=== PATIENT | female | born 1975 | race Two or more races ===

== ENCOUNTER 2017-01-12 18:25 | Emergency (ER) | payer OTHER ==
[2017-01-12 18:31] VITALS: BP 124/86; PULSE 72; TEMP 98.3; BMI 25.7
[2017-01-12] MEDS ORDERED: KETOROLAC TROMETHAMINE 60 MG/2 ML VIAL IM ONE (19:09)
[2017-01-12] MEDS ORDERED: KETOROLAC TROMETHAMINE 60 MG/2 ML VIAL ONE (19:11)
--- NOTE | 2017-01-12 19:17 | PDOC ---
History of Present Illness - General Chief Complaint: Back Pain Stated Complaint: BACK PAIN Time Seen by Provider: 01/12/17 19:04 History Source: Patient Exam Limitations: No Limitations - History of Present Illness Initial Comments: 01/12/17 19:11 41 yr female no medical history with low back pain radiating to her left buttock after doing housework today stood up from bending down and felt pain . denies bowel or bladder dysfunction. Occurred: reports: this afternoon Severity: reports: moderate Pain Location: reports: back Loss of Consciousness: no loss of consciousness Past History - Past Medical History Allergies/Adverse Reactions: Allergies Allergy/AdvReac Type Severity Reaction Status Date / Time ciprofloxacin [From Cipro] Allergy Verified 01/12/17 18:31 ciprofloxacin HCl Allergy Verified 01/12/17 18:31 [From Cipro] coffee (Coffea arabica) Allergy Verified 01/12/17 18:31 shrimp Allergy Verified 01/12/17 18:31 cock Allergy Uncoded 01/12/17 18:31 Home Medications: Ambulatory Orders Diazepam [Valium] 5 mg PO Q8H PRN #9 tablet MDD 15mg 01/12/17 Ibuprofen [Motrin -] 800 mg PO TID 01/12/17 Ketorolac Tromethamine [Toradol] 10 mg PO Q6H PRN #20 tablet 01/12/17 Anemia: No Asthma: No Cancer: No Cardiac Disorders: No CVA: No COPD: No CHF: No Dementia: No Diabetes: No GI Disorders: Yes (gerd) Disorders: No (STONES) HTN: No Hypercholesterolemia: No Kidney Stones: Yes Seizures: No Thyroid Disease: No - Surgical History Abdominal Surgery: Yes Appendectomy: Yes Cholecystectomy: Yes - Reproductive History (#): 2 Para: 1 - Suicide/Smoking/Psychosocial Hx Smoking Status: No Smoking History: Never smoked Number of Cigarettes Smoked Daily: 0 Information on smoking cessation initiated: No Hx Alcohol Use: No Drug/Substance Use Hx: No Substance Use Type: None Trauma Specific PMHX - Complaint Specific PMHX Back Injury: No Review of Systems - Review of Systems Able to Perform ROS?: Yes Is the patient limited Kinyarwanda proficient: No Constitutional: No: Symptoms Reported HEENTM: No: Symptoms Reported Respiratory: No: Symptoms reported Cardiac (ROS): No: Symptoms Reported ABD/GI: No: Symptoms Reported : No: Symptoms Reported Musculoskeletal: Yes: See HPI, Back Pain Integumentary: No: Symptoms Reported *Physical Exam - Vital Signs Last Vital Signs Temp Pulse Resp BP Pulse Ox 98.3 F 72 18 124/86 100 01/12/17 18:28 01/12/17 18:28 01/12/17 18:28 01/12/17 18:28 01/12/17 18:28 - Physical Exam General Appearance: Yes: Nourished, Appropriately Dressed HEENT: positive: EOMI, ADRIENNE, Normal ENT Inspection, TMs Normal, Pharynx Normal Respiratory/Chest: positive: Lungs Clear, Normal Breath Sounds Cardiovascular: positive: Regular Rhythm, Regular Rate Gastrointestinal/Abdominal: positive: Normal Bowel Sounds, Soft Musculoskeletal: positive: Normal Inspection, Decreased Range of Motion, Muscle Spasm. negative: CVA Tenderness, CVA Tenderness (R), CVA Tenderness (L), Vertebral Tenderness Extremity: positive: Normal Capillary Refill, Normal Inspection, Normal Range of Motion, Other (positive SLR left side at 45 degrees ). negative: Tender Integumentary: positive: Normal Color, Dry, Warm Neurologic: positive: Fully Oriented, Alert, Normal Mood/Affect, Normal Response , Motor Strength 5/5 Medical Decision Making - Medical Decision Making 01/12/17 19:14 cc: low back pain with sciatica left side neg bowel or bladder dysfunction neg saddle anesthesia pt is able to get dressed and undressed independently ambulatory with limp will give toradol dc home with valium and toradol follow up with orthopedist *DC/Admit/Observation/Transfer Diagnosis at time of Disposition: Muscle spasm of back, Sciatica of left side - Discharge Dispostion Disposition: HOME Condition at time of disposition: Good - Prescriptions Prescriptions: Ketorolac Tromethamine [Toradol] 10 mg PO Q6H PRN #20 tablet PRN Reason: Back Pain Diazepam [Valium] 5 mg PO Q8H PRN #9 tablet MDD 15mg PRN Reason: Muscle Spasms - Referrals Referrals: Frederic Britt [Primary Care Provider] - Serg Roy MD [Staff Physician] - - Patient Instructions Additional Instructions: warm compresses to area of pain put a pillow under your knees when lying flat take the medication as prescribed DO NOT DRIVE, OPERATE MACHINERY OR DRINK ALCOHOL while taking Valium follow with the orthopedist for follow up next week return to ER for any worsening pain or other symptoms no heavy lifting or bending
== END 2017-01-12 19:36 | disposition home or self-care (01) ==
LOC: JERFT 18:25
PROC: 3E0233Z Introduction of Anti-inflammatory into Muscle, Percutaneous Approach (ICD-10-PCS; principal; 2017-01-12)
DX: M62.830 Muscle spasm of back (principal); M54.32 Sciatica, left side
CPT/HCPCS: 99281-25

== ENCOUNTER 2018-12-06 01:01 | Emergency (ER) | payer OTHER | END 2018-12-06 04:51 | disposition home or self-care (01) | LOC: JER 01:01 ==

== ENCOUNTER 2019-11-18 02:02 | Emergency (ER) | payer OTHER ==
[2019-11-18 02:49] VITALS: BMI 26.2
[2019-11-18] MEDS ORDERED: LACTATED RINGERS SOLUTION 1000 ML INFUS.BAG IV ONE (02:57)
[2019-11-18] MEDS ORDERED: KETOROLAC TROMETHAMINE 15 MG/ML VIAL IVPUSH ONE (02:57)
--- NOTE | 2019-11-18 03:27 | PDOC ---
History of Present Illness - General Chief Complaint: Pain, Acute Stated Complaint: PAIN History Source: Patient Exam Limitations: No Limitations - History of Present Illness Initial Comments: 44 y/o female presenting to [facility] ER complaining of two days of worsening left flank pain vs left suprapubic pain. Initially mild in the suprabubic area. This evening it became very severe in the left flank. Since onset, the pain has migrated in an anteroinferior path. Reports dysuria without hematuria or vaginal discharge. Denies fevers, N/V,D, chest pain, or SOB. States the pain is the same as her previous kidney stones. Has not followed closely with her urologist. LMP Nov 08, 2019 Sexual Hx: - Monogamous relationship with male - No h/o STIs Past History - Medical History Allergies/Adverse Reactions: Allergies Allergy/AdvReac Type Severity Reaction Status Date / Time ciprofloxacin [From Cipro] Allergy Verified 11/18/19 02:49 ciprofloxacin HCl Allergy Verified 11/18/19 02:49 [From Cipro] coffee (Coffea arabica) Allergy Verified 11/18/19 02:49 shrimp Allergy Verified 11/18/19 02:49 COCKAROACH Allergy Uncoded 11/18/19 02:49 Home Medications: Ambulatory Orders Diazepam [Valium] 5 mg PO Q8H PRN #9 tablet MDD 15mg 01/12/17 Ibuprofen [Motrin -] 800 mg PO TID 01/12/17 Ketorolac Tromethamine [Toradol] 10 mg PO Q6H PRN #20 tablet 01/12/17 Ondansetron [Zofran *Odt*] 4 mg SL BID #14 od.tablet 12/06/18 Tamsulosin HCl [Flomax] 0.4 mg PO DAILY #5 capsule MDD 1 tab 12/06/18 Anemia: No Asthma: No Cancer: No Cardiac Disorders: No CVA: No COPD: No CHF: No Dementia: No Diabetes: No GI Disorders: Yes (GERD) Disorders: No HTN: No Hypercholesterolemia: No Kidney Stones: Yes (Recurrent Nephrolithiasis) Seizures: No Thyroid Disease: No - Surgical History Abdominal Surgery: Yes Appendectomy: Yes Cholecystectomy: Yes - Reproductive History Is Patient Now?: No (#): 2 Para: 1 - Psycho-Social/Smoking History Smoking Status: No Smoking History: Never smoked Number of Cigarettes Smoked Daily: 0 - Substance Abuse Hx (Audit-C & DAST Scrn) How often the patient has a drink containing alcohol: Never Score: In Men: 4 or > Positive; In Women: 3 or > Positive: 0 Screen Result (Pos requires Nsg. Audit-10AR): Negative In the last yr the pt used illegal drug/Rx for NonMed reason: No Score: Yes response is considered Positive: 0 Screen Result (Positive result requires Nsg. DAST-10): Negative Review of Systems - Review of Systems Able to Perform ROS?: Yes Comments:: 10 point review of systems completed. All systems negative except as noted above. *Physical Exam - Vital Signs Last Vital Signs Temp Pulse Resp BP Pulse Ox 98 F 65 17 99/58 L 100 11/18/19 02:47 11/18/19 02:47 11/18/19 02:47 11/18/19 02:47 11/18/19 02:47 - Physical Exam Vital signs and nursing notes reviewed. Constitutional- Well-developed, well-nourished adult female in no acute distress but obvious discomfort. Observed walking through the department unassisted but crying. Examined in semi-fowlers position on hospital stretcher. Answered all questions appropriately and completely. Head- Normocephalic. No obvious external signs of trauma. Eyes- Sclerae white. Neck- Supple, trachea is midline. Cardiovascular / Chest- Regular rate. Peripheral pulses- radial pulses full. Respiratory- Breathing unlabored. Speaking in multi-word responses without pausing. Gastrointestinal- abdomen is mildly tender in the left lower quadrant vs left flank without rebound or guarding. Globally, abdomen is soft and nondistended. No hepatosplenomegaly. No pulsatile masses. No overlying skin lesions or obvious signs of trauma. Neuro- Alert and oriented x4. Moving all four extremities spontaneously. No facial asymmetry. No slurred speech. Skin- Warm, dry, and intact. No bruising, rashes, or other lesions. - No R or L CVA tenderness. Psych- Affect- tearful. Mood- normal. Speech was non-labored, non-pressured. ED Treatment Course - LABORATORY CBC & Chemistry Diagram: 11/18/19 02:55 11/18/19 02:55 - RADIOLOGY Radiology Studies Ordered: Category Date Time Status SPIRAL- RENAL-STONE CT [CT] Stat CT Scan 11/18/19 03:26 Ordered Radiograph Interpretation: Spiral Abdominal CT: THIS IS A PRELIMINARY REPORT DATE OF SERVICE: 2019-11-18 04:07:38 IMAGES: [id number] EXAM: CT abdomen and pelvis without contrast HISTORY: Left flank pain COMPARISON: None. FINDINGS: Lung bases are clear. The visualized cardiac chambers are normal size and configuration. Status post cholecystectomy without biliary duct dilation. There is mild to moderate left hydronephrosis secondary to a 3 mm distal left ureteral stone, just proximal to the UVJ. Multiple additional small bilateral renal stones are noted. Normal liver, g pancreas, spleen, adrenal glands . The stomach and abdominal small and large bowel are normal. There is no aortic aneurysm. There is no significant retroperitoneal lymphadenopathy. The pelvic small and large bowel are normal. There is no evidence of appendicitis. The uterus and adnexal structures are normal. Urinary bladder is unremarkable. There is no pelvic free fluid. No discrete pelvic lymphadenopathy is identified. IMPRESSION: Mild to moderate left hydronephrosis secondary to a 3 mm distal left ureteral stone, just proximal to the UVJ. Multiple additional small bilateral renal stones. One or more of the following dose reduction techniques were used: automated exposure control, adjustment of the mA and/or kV according to patient size, use of iterative reconstructive technique. THIS DOCUMENT HAS BEEN ELECTRONICALLY SIGNED Rob Kern MD 11/18/2019 04:55 EST Medical Decision Making - Medical Decision Making 44 y/o female presenting with worsening migratory L flank vs LL abdominal pain x2 days. Similar to previous episodes of nephrolithiasis. Afebrile. Triage vitals unremarkable for hypotension or tachycardia. Normoxic on room air. Physical exam as described above. Suspect acute nephrolithiasis. Lower suspicion for acute cystitis vs pyelonephritis vs ectopic vs diverticulitis vs intra-abdominal abscess. Ordered Toradol and LR IVFB for symptom relief. UA remarkable for hematuria without nitrites or leukocyte esterase. Suspect the pyuria is secondary to high number of epithelial cells. Urine culture pending at time of discharge. Reviewed laboratory data. No clinically significant derangement noted. Renal function within normal limits. Spiral CT remarkable for 3mm stone just proximal to left UVJ. Mild to moderate hydronephrosis. Suspect the stone will pass without further intervention. Pt reasessed. Reports pain is not as bad as before. Repeat abdominal exam unchanged from initial - no acute abdominal signs. Discussed physical exam findings, laboratory results, and CT findings with pt. Answered all questions. Provided return precautions. pt expressed verbal understanding and agreement with plan to discharge home with outpatient follow up. Provided copies of todays results. Encouraged close follow up with urology clinic. Case discussed with ED Attending Dr. Aimee Adams M.D., PGY3 Emergency Medicine Resident Discharge - Discharge Information Problems reviewed: Yes Clinical Impression/Diagnosis: Left nephrolithiasis Condition: Good Disposition: HOME - Admission No - Follow up/Referral Referrals: Juliano Zavaleta MD [Staff Physician] - - Patient Discharge Instructions Patient Printed Discharge Instructions: DI for Kidney Stones Additional Instructions: You were seen today for left flank / abdominal pain. Your CT scan showed a small left sided kidney stone. This is likely the cause of your pain. You should likely pass the stone in the next day or so. You may continue to have some mild discomfort over the next few days. You can take over the counter Tylenol (Acetaminophen) and/or Tylenol (Ibuprofen) as needed for pain. Take as directed on the package insert. Do not take more than the recommended dose. You should follow up with your urologist to discuss your frequent number of kidney stones. I have included the name of a urologist associated with this hospital since you cannot remember the name of your doctor. All of todays results are attached to this packet. Take it with you to the appointment so your doctor can review them. Return to the ED for new or worsening symptoms. Print Language: LAO - Post Discharge Activity Work/Back to School Note: Back to Work
[2019-11-18] MEDS ORDERED: KETOROLAC TROMETHAMINE 15 MG/ML VIAL ONE (03:29)
[2019-11-18 03:51] LABS: EPI CELLS >36 /uL (0-25.1); HYALINE CASTS 2 /uL (0-3.1); PH,URINE 6.5 (5.0-8.0); URINE APPEARANCE CLOUDY; URINE BACTERIA 673 /uL (0-1359); URINE BILIRUBIN NEGATIVE (NEGATIVE); URINE COLOR YELLOW; URINE GLUCOSE (UA) NEGATIVE (NEGATIVE); URINE KETONE NEGATIVE (NEGATIVE); URINE LEUK ESTERASE NEGATIVE (NEGATIVE); URINE NITRITE NEGATIVE (NEGATIVE); URINE PROTEIN 1+ (NEGATIVE); URINE RBC 183 /uL (0-23.9); URINE WBC 19 /uL (0-25.8)
[2019-11-18 04:03] LABS: BASO % 0.7 % (0-2.0); EOS % 4.1 % (0-4.5); HEMATOCRIT 30.2 % (32.4-45.2); LYMPH % 44.6 % (8-40); MEAN CELL VOLUME 62.3 fl (80-96); MEAN PLT VOLUME 8.9 fl (7.5-11.1); MONO % 9.1 % (3.8-10.2); NEUT % 41.5 % (42.8-82.8); PLATELET COUNT 282 K/MM3 (134-434); RBC 4.84 M/mm3 (3.60-5.2); RDW 19.5 % (11.6-15.6); WHITE BLOOD COUNT 6.3 K/mm3 (4.0-10.0)
[2019-11-18 04:06] LABS: MCH 18.7 pg (25.7-33.7)
[2019-11-18 05:13] LABS: ALBUMIN 3.9 g/dl (3.4-5.0); BILIRUBIN,TOTAL 0.3 mg/dL (0.2-1); BLOOD UREA NITROGEN 15.9 mg/dL (7-18); CALCIUM 9.7 mg/dL (8.5-10.1); CREATININE 0.7 mg/dL (0.55-1.3); POTASSIUM 3.5 mmol/L (3.5-5.1); TOT PROT 7.3 g/dl (6.4-8.2)
--- NOTE | 2019-11-18 05:29 | PDOC ---
Attending Attestation - Resident Resident Name: Wayne Adams - HPI HPI: 11/23/19 07:37 Pt presents to the ED complaining of L flank pain without fever, vomiting or diarrhea. Also complaining of dysuria. Denies vaginal bleeding or discharge. 11/23/19 07:46 - Physicial Exam PE: 11/23/19 07:46 Agree with resident exam. Abdomen is soft, non tender, non distended without guarding or rebound. No CVA tenderness. - Medical Decision Making 11/23/19 07:47 Pt presents to the ED complaining of L sided flank pain. Differential includes stone, pyelonephritis, muscular pain. Will check labs and CT abdomen and rj ssess. Discharge - Discharge Information Problems reviewed: Yes Clinical Impression/Diagnosis: Left nephrolithiasis Condition: Good Disposition: HOME - Follow up/Referral Referrals: Juliano Zavaleta MD [Staff Physician] - - Patient Discharge Instructions Patient Printed Discharge Instructions: DI for Kidney Stones Additional Instructions: You were seen today for left flank / abdominal pain. Your CT scan showed a small left sided kidney stone. This is likely the cause of your pain. You should likely pass the stone in the next day or so. You may continue to have some mild discomfort over the next few days. You can take over the counter Tylenol (Acetaminophen) and/or Tylenol (Ibuprofen) as needed for pain. Take as directed on the package insert. Do not take more than the recommended dose. You should follow up with your urologist to discuss your frequent number of kidney stones. I have included the name of a urologist associated with this hospital since you cannot remember the name of your doctor. All of todays results are attached to this packet. Take it with you to the appointment so your doctor can review them. Return to the ED for new or worsening symptoms. Print Language: FRENCH - Post Discharge Activity Work/Back to School Note: Back to Work
[2019-11-18 05:54] VITALS: BP 105/55; PULSE 72; TEMP 98.2
[2019-11-18 08:02] LABS: ANISOCYTOSIS 2+; MACROCYTOSIS 2+; PLATELET ESTIMATE NORMAL
== END 2019-11-18 05:57 | disposition home or self-care (01) ==
LOC: JER 02:02
PROC: 3E033NZ Introduction of Analgesics, Hypnotics, Sedatives into Peripheral Vein, Percutaneous Approach (ICD-10-PCS; principal; 2019-11-18)
DX: N20.0 Calculus of kidney (principal)
CPT/HCPCS: 36415; 74176-TC; 80053; 81003; 84703; 85025; 87086; 96374; 99285-25

== ENCOUNTER 2021-01-11 18:23 | Emergency (ER) | payer OTHER ==
[2021-01-11 18:45] VITALS: BP 115/73; PULSE 75; TEMP 98.1; BMI 28.3
[2021-01-11] MEDS ORDERED: ACETAMINOPHEN 1000 MG/100 ML VIAL IVPB ONE (19:24)
[2021-01-11] MEDS ORDERED: TAMSULOSIN HCL 0.4 MG CAP PO ONE (19:24)
[2021-01-11] MEDS ORDERED: SODIUM CHLORIDE 1,000 ML IV STA (19:24)
[2021-01-11] MEDS ORDERED: ACETAMINOPHEN INJECTION 100 ML IVPB ONE (19:27)
[2021-01-11] MEDS ORDERED: TAMSULOSIN HCL 0.4 MG CAP ONE (19:28)
[2021-01-11 20:32] LABS: BASO % 0.8 % (0-2.0); EOS % 3.8 % (0-4.5); HEMATOCRIT 32.1 % (32.4-45.2); HEMOGLOBIN 10.2 GM/dL (10.7-15.3); MCH 23.6 pg (25.7-33.7); MCHC 31.9 g/dl (32.0-36.0); MEAN CELL VOLUME 74.1 fl (80-96); MEAN PLT VOLUME 7.2 fl (7.5-11.1); NEUT % 51.4 % (42.8-82.8); PLATELET COUNT 306 10^3/uL (134-434); RBC 4.33 M/mm3 (3.60-5.2); RDW 17.2 % (11.6-15.6)
[2021-01-11 20:37] LABS: PH,URINE 5.5 (5.0-8.0); URINE APPEARANCE CLEAR; URINE BILIRUBIN NEGATIVE (NEGATIVE); URINE COLOR YELLOW; URINE GLUCOSE (UA) NEGATIVE (NEGATIVE); URINE KETONE NEGATIVE (NEGATIVE); URINE LEUK ESTERASE NEGATIVE (NEGATIVE); URINE NITRITE NEGATIVE (NEGATIVE); URINE PROTEIN NEGATIVE (NEGATIVE); URINE UROBILINOGEN 0.2 mg/dL (0.2-1.0)
[2021-01-11 20:40] LABS: HCG,QUALITATIVE URINE Negative
[2021-01-11 20:43] LABS: CALCIUM 8.5 mg/dL (8.5-10.1)
[2021-01-11 20:44] LABS: ALBUMIN 3.6 g/dl (3.4-5.0); BLOOD UREA NITROGEN 10.5 mg/dL (7-18)
[2021-01-11 20:47] LABS: CREATININE 0.7 mg/dL (0.55-1.3)
[2021-01-11 20:49] LABS: BILIRUBIN,TOTAL 0.2 mg/dL (0.2-1); TOT PROT 7.2 g/dl (6.4-8.2)
== END 2021-01-11 22:50 | disposition home or self-care (01) ==
LOC: JER 18:23
PROC: 3E033NZ Introduction of Analgesics, Hypnotics, Sedatives into Peripheral Vein, Percutaneous Approach (ICD-10-PCS; principal; 2021-01-11)
PROC: 3E0337Z Introduction of Electrolytic and Water Balance Substance into Peripheral Vein, Percutaneous Approach (ICD-10-PCS; 2021-01-11)
DX: N20.0 Calculus of kidney (principal); R10.9 Unspecified abdominal pain
CPT/HCPCS: 36415; 74176-TC; 76775-TC; 80053; 81003; 84703; 85025; 87086; 99285-25; J0131

== ENCOUNTER 2021-02-17 04:34 | Day surgery (SDC) | payer OTHER ==
[2021-02-11 16:46] VITALS: BMI 28.3
[2021-02-17] MEDS ORDERED: GENTAMICIN SO4 80 MG/2 ML VIAL ONE (16:35)
[2021-02-17] MEDS ORDERED: MIDAZOLAM HCL 2 MG/2 ML SINGLE DOSE VIAL ONE (16:39)
[2021-02-17] MEDS ORDERED: GENTAMICIN SO4 80 MG/2 ML VIAL IVPB ONE (16:40)
[2021-02-17] MEDS ORDERED: ceFAZolin SODIUM 1 GM VIAL IVPB ONE (16:40)
[2021-02-17 18:33] VITALS: PULSE 76
[2021-02-17 18:34] VITALS: TEMP 98.4
[2021-02-17 18:38] VITALS: BP 110/68
[2021-02-17] MEDS ORDERED: oxyCODONE HCL 5 MG TABLET PO PRN (18:38)
[2021-02-17] MEDS ORDERED: oxyCODONE HCL 5 MG TABLET ONE (18:41)
== END 2021-02-17 19:20 | disposition home or self-care (01) ==
LOC: JASU-SURG 04:34
PROVIDERS: ATTEND Urology
PROC: 0TF3XZZ Fragmentation in Right Kidney Pelvis, External Approach (ICD-10-PCS; principal; 2021-02-17 15:30)
DX: N20.0 Calculus of kidney (principal)
CPT/HCPCS: 81025

== ENCOUNTER 2021-03-09 03:45 | Emergency (ER) | payer OTHER ==
[2021-03-09 03:55] VITALS: BP 115/81; PULSE 76; TEMP 98.1; BMI 29.2
[2021-03-09] MEDS ORDERED: KETOROLAC TROMETHAMINE 15 MG/ML VIAL IM ONE (04:20)
[2021-03-09] MEDS ORDERED: METHOCARBAMOL 500 MG TABLET PO ONE (04:21)
[2021-03-09] MEDS ORDERED: LIDOCAINE 5% TOPICAL PATCH TP ONE (04:21)
[2021-03-09] MEDS ORDERED: ACETAMINOPHEN 500 MG TABLET (FP) PO ONE ×2 (04:21→04:39)
[2021-03-09] MEDS ORDERED: KETOROLAC TROMETHAMINE 30 MG/1 ML VIAL ONE (04:29)
[2021-03-09] MEDS ORDERED: METHOCARBAMOL 500 MG TABLET ONE (04:30)
[2021-03-09] MEDS ORDERED: LIDOCAINE 5% TOPICAL PATCH ONE (04:30)
[2021-03-09] MEDS ORDERED: ACETAMINOPHEN 325 MG TABLET (FP) ONE (04:32)
[2021-03-09] MEDS ORDERED: LIDOCAINE PATCH REMOVAL MC ONE (17:00)
== END 2021-03-09 04:54 | disposition home or self-care (01) ==
LOC: JER 03:45
PROC: 3E0233Z Introduction of Anti-inflammatory into Muscle, Percutaneous Approach (ICD-10-PCS; principal; 2021-03-09)
DX: M54.9 Dorsalgia, unspecified (principal)
CPT/HCPCS: 96372; 99283-25

== ENCOUNTER 2021-06-23 04:16 | Day surgery (SDC) | payer OTHER ==
[2021-06-19 13:12] VITALS: BMI 29.2
[~2021-06-23 04:16] MED LIST: GENTAMICIN SO4 80 MG/2 ML VIAL IVPB ONE; ceFAZolin SODIUM 1 GM VIAL IVPB ONE
[2021-06-23] MEDS ORDERED: MIDAZOLAM HCL 2 MG/2 ML SINGLE DOSE VIAL ONE (09:29)
[2021-06-23] MEDS ORDERED: GENTAMICIN SO4 80 MG/2 ML VIAL ONE (09:32)
[2021-06-23] MEDS ORDERED: ceFAZolin SODIUM 1 GM VIAL IVPB ONE (09:35)
[2021-06-23] MEDS ORDERED: GENTAMICIN SO4 80 MG/2 ML VIAL IVPB ONE (09:36)
[2021-06-23 12:10] VITALS: BP 116/70; PULSE 60; TEMP 98.2
== END 2021-06-23 12:05 | disposition home or self-care (01) ==
LOC: JASU-SURG 04:16
PROVIDERS: ATTEND Urology
PROC: 0TF4XZZ Fragmentation in Left Kidney Pelvis, External Approach (ICD-10-PCS; principal; 2021-06-23 09:00)
DX: N20.0 Calculus of kidney (principal)
CPT/HCPCS: 81025

== ENCOUNTER 2021-10-13 05:18 | Day surgery (SDC) | payer OTHER ==
[2021-10-08 17:32] VITALS: BMI 28.3
[2021-10-13 11:42] VITALS: RESP 20
[2021-10-13] MEDS ORDERED: KETOROLAC TROMETHAMINE 30 MG/1 ML VIAL ONE (12:08)
[2021-10-13] MEDS ORDERED: PROPOFOL 20 ML ONE (12:08)
[2021-10-13] MEDS ORDERED: MIDAZOLAM HCL 2 MG/2 ML SINGLE DOSE VIAL ONE (12:08)
[2021-10-13] MEDS ORDERED: ceFAZolin SODIUM 1 GM VIAL IVPB ONE (13:48)
[2021-10-13] MEDS ORDERED: ceFAZolin SODIUM 1 GM VIAL ONE (13:49)
[2021-10-13] MEDS ORDERED: GENTAMICIN SO4 80 MG/2 ML VIAL ONE (13:50)
[2021-10-13] MEDS ORDERED: GENTAMICIN SO4 80 MG/2 ML VIAL IVPB ONE (13:51)
[2021-10-13 14:42] VITALS: TEMP 97.6
[2021-10-13] MEDS ORDERED: ACETAMINOPHEN 325 MG TABLET (FP) ONE (15:09)
[2021-10-13] MEDS ORDERED: ACETAMINOPHEN 500 MG TABLET (FP) PO ONE (15:13)
[2021-10-13 17:01] VITALS: BP 116/70; PULSE 78
== END 2021-10-13 16:30 | disposition home or self-care (01) ==
LOC: JASU-SURG 05:18
PROVIDERS: ATTEND Urology
PROC: 0TF3XZZ Fragmentation in Right Kidney Pelvis, External Approach (ICD-10-PCS; principal; 2021-10-13 13:49)
DX: N20.0 Calculus of kidney (principal)
CPT/HCPCS: 81025

== ENCOUNTER 2022-02-16 04:18 | Day surgery (SDC) | payer OTHER ==
[2022-02-10 17:52] VITALS: BMI 28.3
[2022-02-16] MEDS ORDERED: FENTANYL CITRATE/PF 50 MCG/ML VIAL ONE (13:50)
[2022-02-16] MEDS ORDERED: MIDAZOLAM HCL 2 MG/2 ML SINGLE DOSE VIAL ONE (13:50)
[2022-02-16] MEDS ORDERED: GENTAMICIN SO4 80 MG/2 ML VIAL IVPB ONE (13:52)
[2022-02-16] MEDS ORDERED: ceFAZolin SODIUM 1 GM VIAL IVPB ONE (13:52)
[2022-02-16] MEDS ORDERED: GENTAMICIN SO4 80 MG/2 ML VIAL ONE (13:53)
[2022-02-16] MEDS ORDERED: PROPOFOL 20 ML ONE (14:09)
[2022-02-16] MEDS ORDERED: ACETAMINOPHEN 1000 MG/100 ML BAG IVPB ONE (14:47)
[2022-02-16] MEDS ORDERED: ACETAMINOPHEN INJECTION 100 ML IVPB ONE (14:49)
[2022-02-16 16:02] VITALS: RESP 20; TEMP 98
[2022-02-16 16:54] VITALS: BP 108/62; PULSE 59
== END 2022-02-16 16:08 | disposition home or self-care (01) ==
LOC: JASU-SURG 04:18
PROVIDERS: ATTEND Urology
PROC: 0TF3XZZ Fragmentation in Right Kidney Pelvis, External Approach (ICD-10-PCS; principal; 2022-02-16 13:00)
DX: N20.0 Calculus of kidney (principal)
CPT/HCPCS: 81025

== ENCOUNTER 2023-03-01 04:08 | Day surgery (SDC) | payer OTHER ==
[2023-02-25 16:13] VITALS: BMI 29.7
[2023-03-01] MEDS ORDERED: MIDAZOLAM HCL 2 MG/2 ML SINGLE DOSE VIAL ONE ×2 (10:13→10:30)
[2023-03-01] MEDS ORDERED: FENTANYL CITRATE/PF 50 MCG/ML VIAL ONE (10:13)
[2023-03-01] MEDS ORDERED: GENTAMICIN 80MG PREMIX BAG IVPB ONE (10:29)
[2023-03-01] MEDS ORDERED: ceFAZolin SODIUM 1 GM VIAL IVPB ONE (10:29)
[2023-03-01 11:20] VITALS: RESP 18; TEMP 97.8
[2023-03-01] MEDS ORDERED: ACETAMINOPHEN 325 MG TABLET (FP) ONE (12:04)
[2023-03-01 12:46] VITALS: BP 127/85; PULSE 60
[2023-03-01] MEDS ORDERED: ACETAMINOPHEN 325 MG TABLET (FP) PO ONE (13:00)
== END 2023-03-01 12:17 | disposition home or self-care (01) ==
LOC: JASU-SURG 04:08
PROVIDERS: ATTEND Urology
PROC: 0TF4XZZ Fragmentation in Left Kidney Pelvis, External Approach (ICD-10-PCS; principal; 2023-03-01 10:00)
DX: N20.0 Calculus of kidney (principal)
CPT/HCPCS: 81025

== ENCOUNTER 2023-04-21 13:06 | Emergency (ER) | payer OTHER ==
[2023-04-21 13:14] VITALS: BP 113/69; PULSE 60; RESP 20; TEMP 98.6; BMI 29.2
[2023-04-21] MEDS ORDERED: LIDOCAINE 5% TOPICAL PATCH TP ONE (14:31)
[2023-04-21] MEDS ORDERED: KETOROLAC TROMETHAMINE 30 MG/1 ML VIAL IM ONE (14:31)
[2023-04-21] MEDS ORDERED: diazePAM 5 MG TABLET PO ONE (14:31)
[2023-04-21] MEDS ORDERED: LIDOCAINE 4% PATCH TP ONE (14:33)
[2023-04-21] MEDS ORDERED: diazePAM 5 MG TABLET ONE (14:34)
[2023-04-21] MEDS ORDERED: KETOROLAC TROMETHAMINE 30 MG/1 ML VIAL ONE (14:34)
[2023-04-21] MEDS ORDERED: LIDOCAINE PATCH REMOVAL MC SCH (22:00)
== END 2023-04-21 16:23 | disposition home or self-care (01) ==
LOC: JERFT 13:06
PROC: 3E0233Z Introduction of Anti-inflammatory into Muscle, Percutaneous Approach (ICD-10-PCS; principal; 2023-04-21)
DX: M54.6 Pain in thoracic spine (principal); M62.830 Muscle spasm of back
CPT/HCPCS: 99284-25

== ENCOUNTER 2023-05-24 04:12 | Day surgery (SDC) | payer OTHER ==
[2023-04-06 15:22] VITALS: BMI 29.9
[2023-05-24] MEDS ORDERED: MIDAZOLAM HCL 2 MG/2 ML SINGLE DOSE VIAL ONE (09:11)
[2023-05-24] MEDS ORDERED: ONDANSETRON 4 MG/2 ML VIAL ONE (09:11)
[2023-05-24] MEDS: cefTRIAXone SODIUM 1 GM VIAL IVPB ONE (09:16)
[2023-05-24] MEDS ORDERED: PROPOFOL 20 ML ONE (09:28)
[2023-05-24] MEDS ORDERED: cefTRIAXone SODIUM 1 GM VIAL IVPB ONE (09:30)
[2023-05-24 10:59] VITALS: RESP 18
[2023-05-24] MEDS ORDERED: ACETAMINOPHEN 500 MG TABLET (FP) ONE (11:38)
[2023-05-24] MEDS: ACETAMINOPHEN 500 MG TABLET (FP) PO ONE (11:39)
[2023-05-24 13:05] VITALS: BP 107/70; PULSE 60; TEMP 98.4
== END 2023-05-24 11:55 | disposition home or self-care (01) ==
LOC: JASU-SURG 04:12
PROVIDERS: ATTEND Urology
PROC: 0TF3XZZ Fragmentation in Right Kidney Pelvis, External Approach (ICD-10-PCS; principal; 2023-05-24 09:00)
DX: N20.0 Calculus of kidney (principal)
CPT/HCPCS: 81025

== ENCOUNTER 2023-06-20 21:52 | Emergency (ER) | payer OTHER ==
[2023-06-20 21:59] VITALS: BP 160/84; PULSE 63; RESP 16; TEMP 98.2
[2023-06-20 22:43] LABS: EPI CELLS 11 /uL (0-25.1); HYALINE CASTS 0 /uL (0-3.1); PH,URINE 6.5 (5.0-8.0); URINE APPEARANCE CLEAR; URINE BACTERIA 85 /uL (0-1359); URINE BILIRUBIN NEGATIVE (NEGATIVE); URINE COLOR ORANGE; URINE GLUCOSE (UA) NEGATIVE (NEGATIVE); URINE KETONE NEGATIVE (NEGATIVE); URINE LEUK ESTERASE TRACE (NEGATIVE); URINE NITRITE NEGATIVE (NEGATIVE); URINE PROTEIN NEGATIVE (NEGATIVE); URINE RBC 2497 /uL (0-23.9); URINE UROBILINOGEN 0.2 mg/dL (0.2-1.0); URINE WBC 21 /uL (0-25.8)
[2023-06-20] MEDS ORDERED: KETOROLAC TROMETHAMINE 15 MG/ML VIAL ONE (22:43)
[2023-06-20] MEDS ORDERED: ACETAMINOPHEN 325 MG TABLET (FP) ONE (22:44)
[2023-06-20] MEDS: ACETAMINOPHEN 325 MG TABLET (FP) PO ONE (22:53)
[2023-06-20] MEDS: KETOROLAC TROMETHAMINE 30 MG/1 ML VIAL IVPUSH ONE (22:53)
[2023-06-20 22:57] LABS: BASO % 1.1 % (0-2.0); EOS % 2.5 % (0-4.5); HEMATOCRIT 37.6 % (32.4-45.2); HEMOGLOBIN 12.5 GM/dL (10.7-15.3); LYMPH % 44.5 % (8-40); MCH 29.2 pg (25.7-33.7); MCHC 33.3 g/dl (32.0-36.0); MEAN CELL VOLUME 87.8 fl (80-96); MEAN PLT VOLUME 6.8 fl (7.5-11.1); MONO % 6.6 % (3.8-10.2); NEUT % 45.3 % (42.8-82.8); PLATELET COUNT 300 10^3/uL (134-434); RBC 4.28 M/mm3 (3.60-5.2); RDW 14.1 % (11.6-15.6); WHITE BLOOD COUNT 5.6 K/mm3 (4.0-10.0)
[2023-06-20 23:17] LABS: POTASSIUM 3.7 mmol/L (3.5-5.1)
[2023-06-20 23:19] LABS: CALCIUM 9.2 mg/dL (8.5-10.1)
[2023-06-20 23:20] LABS: ALBUMIN 3.6 g/dl (3.4-5.0); BLOOD UREA NITROGEN 16.3 mg/dL (7-18)
[2023-06-20 23:22] LABS: CREATININE 0.7 mg/dL (0.55-1.3)
[2023-06-20 23:24] LABS: BILIRUBIN,TOTAL 0.3 mg/dL (0.2-1)
[2023-06-20 23:25] LABS: TOT PROT 6.8 g/dl (6.4-8.2)
== END 2023-06-21 01:11 | disposition admitted as inpatient to this hospital (09) ==
LOC: JER 21:52
PROC: 3E0303Z Introduction of Anti-inflammatory into Peripheral Vein, Open Approach (ICD-10-PCS; principal; 2023-06-20)
DX: R10.9 Unspecified abdominal pain (principal); R31.9 Hematuria, unspecified; N13.2 Hydronephrosis with renal and ureteral calculous obstruction
CPT/HCPCS: 36415; 74176-TC; 76775-TC; 80053; 81003; 84703; 85025; 87086; 99285-25

== ENCOUNTER 2023-08-30 04:18 | Day surgery (SDC) | payer OTHER ==
[2023-08-24 12:19] VITALS: BMI 30.1
[2023-08-30 08:32] VITALS: RESP 20
[2023-08-30] MEDS ORDERED: MIDAZOLAM HCL 2 MG/2 ML SINGLE DOSE VIAL ONE ×2 (10:13→10:42)
[2023-08-30] MEDS ORDERED: GENTAMICIN SO4 80 MG/2 ML VIAL ONE (10:31)
[2023-08-30] MEDS: GENTAMICIN 80MG PREMIX BAG IVPB ONE (10:33)
[2023-08-30] MEDS: GENTAMICIN SO4 80 MG/2 ML VIAL IVPB ONE (10:33)
[2023-08-30] MEDS: ceFAZolin 2 GRAM PREMIX BAG IVPB ONE (10:33)
[2023-08-30] MEDS ORDERED: ceFAZolin SODIUM 1 GM VIAL ONE (10:34)
[2023-08-30] MEDS ORDERED: FENTANYL CITRATE/PF 50 MCG/ML VIAL ONE ×2 (10:42→10:46)
[2023-08-30 12:35] VITALS: BP 110/74; PULSE 50; TEMP 97.4
== END 2023-08-30 13:33 | disposition home or self-care (01) ==
LOC: JASU-SURG 04:18
PROVIDERS: ATTEND Urology
PROC: 0TF3XZZ Fragmentation in Right Kidney Pelvis, External Approach (ICD-10-PCS; principal; 2023-08-30 10:30)
DX: N20.0 Calculus of kidney (principal)
CPT/HCPCS: 81025